=== PATIENT | female | born 1955 | race Caucasian/White ===

== ENCOUNTER 2017-09-20 07:50 | Day surgery (SDC) | payer OTHER, BC ==
[~2017-09-20] VITALS: Ht 162.6 cm; Wt 74.8 kg
[~2017-09-20 07:50] MED LIST: LEVOTHYROXINE25 MCG PO; TRAZODONE HCL50 MG PO
--- NOTE | 2017-09-20 08:54 | NUR ---
0854 PATIENT TO IMAGING FOR NEEDLE LOCALIZATION. 0978 PATIENT BACK TO DAY SURGERY. IV FLUSHED AND INFUSING WELL.
--- NOTE | 2017-09-20 11:04 | NUR ---
09/20/17 1104 [employer] 1100 PATIENT ARRIVES TO PACU, RESTING WITH EYES CLOSED. RESPONDS APPROPRIATELY TO QUESTIONS. RESP EVEN AND UNLABORED, MASK AT 10 LITERS ON ARRIVAL, TURNED DOWN TO 6LITERS, SATS 100%. RATES PAIN A DISCOMFORT 5/10, DENIES PAIN MEDS AT THIS TIME.
[2017-09-20] MEDS ORDERED: OXYCODON-ACETA1 EAC2 PO (11:12)
[2017-09-20] MEDS ORDERED: MAPAP325 MG PO (11:12)
[2017-09-20] MEDS ORDERED: IBUPROFEN600 MG PO (11:12)
--- NOTE | 2017-09-20 11:30 | NUR ---
PATIENT TOLERATING WATER AND CRACKERS, NO NAUSEA. PATIENT REPORTS RIGHT BREAST PAIN 5/10. P.O. PERCOCET GIVEN.
--- NOTE | 2017-09-20 12:21 | NUR ---
1215-PATIENT UP TO BATHROOM SBA VOIDED 200MLS CLEAR YELLOW URINE. REPORTS PAIN 3/10 SINCE RECEIVING MEDICATION. DENIES NAUSEA. SALINE LOCKED IV. VSS
--- NOTE | 2017-09-20 16:07 | EKG ---
[facility] [address] [facility] [place] [address] Signed Normal sinus rhythm Normal ECG No previous ECGs available Confirmed by TESS DORSEY MD ([id number]) on 09/20/2017 4:07:39 PM Electronically Signed By: TESS DORSEY MD 09/20/17 1607 PATIENT NAME: ELOISA PADILLA Electrocardiogram DATE OF : 53 PHYSICIAN: TESS DORSEY MD REPORT #: [id number] REPORT IS CONFIDENTIAL AND NOT TO BE RELEASED WITHOUT AUTHORIZATION
--- NOTE | 2017-09-22 09:30 | OR ---
[facility] [address] [place], [place] [address] Signed DATE OF OPERATION: 09/20/2017 SURGEON: Kyara De La Cruz MD PREOPERATIVE DIAGNOSIS: Right lateral breast atypical lobular hyperplasia on core biopsy. POSTOPERATIVE DIAGNOSIS: Right lateral breast atypical lobular hyperplasia on core biopsy. PROCEDURE: Needle localized partial excision of breast. ANESTHESIA: General LMA; Kyara Ragland CRNA and local 10 mL of 1% lidocaine. INDICATION: This 62-year-old white woman is a patient of SUKUMAR Bonilla. She also sees Dr. Lizet Kern. She was noted to have an abnormality on mammogram in the right upper outer aspect of the breast, underwent image-guided biopsy by Dr. Luba Villalobos showing fibrosis and fibroadenomatoid change with a 2 mm focus of atypical lobular hyperplasia. There was no sign of invasive carcinoma. Given the findings of atypical lobular hyperplasia, wider excision is deemed appropriate on the possibility of local invasive cancer in the area. As the lesion is not palpable, a needle localized excisional approach is necessary. The risks of bleeding, infection, cosmetic deformity, need for additional treatment, should malignancy be found were all reviewed in detail. She understands and wished to proceed. FINDINGS: The wire emanating from the lateral aspect of the right breast. Excised specimen contained the marker as well as the other findings of concern. Wide resection was undertaken. A 5 cm (golf ball size) excision was accomplished. There was no untoward bleeding and wound was closed without problem. DESCRIPTION OF PROCEDURE: The patient received from the Radiology suite with wire emanating from the lateral aspect of the right breast. She was given a general anesthetic with LMA technique. Preoperative antibiotic Ancef was given. The right breast was prepared with a chlorhexidine solution and draped sterilely. The table was placed in reverse Trendelenburg left side down position. The area from which the needle emanated did not Electronically Signed By: KYARA DE LA CRUZ MD 09/22/17 0930 PATIENT NAME: ELOISA PADILLA OPERATIVE REPORT DATE OF : 53 REPORT #: [id number] PHYSICIAN: KYARA DE LA CRUZ MD PCP: ELOISA CONNELLY REPORT IS CONFIDENTIAL AND NOT TO BE RELEASED WITHOUT AUTHORIZATION [facility] [address] [place], [place] [address] Signed lend itself well to an inframammary incision or a circumareolar incision and on that basis, an incision was made medial to the wire entry point along the line of skin tension. Dissection was carried through the skin with a #15 blade. The wire was delivered into the wound and the parenchyma grasped with an Allis clamp. Using electrocautery, wide resection was undertaken. The angle had some angulation deformity and curvature to it, concordant to the preoperative imaging study and therefore, a wide resection was undertaken. Electrocautery was used for hemostasis. The wound was irrigated with saline solution. The specimen was passed for specimen radiograph and ultimately confirmed to have the marker within the specimen and other findings within it as well. The parenchyma of the breast was reapproximated with interrupted 2-0 Vicryl and skin closed with running subcuticular 3-0 Vicryl. Steri-Strips were applied as was Mepilex silver sponge dressing and an OpSite. The patient tolerated the procedure well. Blood loss was 10 mL or so. Kyara De La Cruz MD JM/MODL /[id number] cc: MD Eloisa Jones PA Copies: LUBA VILLALOBOS MD, LINDA PA ~ Electronically Signed By: KYARA DE LA CRUZ MD 09/22/17 0930 PATIENT NAME: ELOISA PADILLA OPERATIVE REPORT DATE OF : 53 REPORT #: [id number] PHYSICIAN: KYARA DE LA CRUZ MD PCP: ELOISA CONNELLY REPORT IS CONFIDENTIAL AND NOT TO BE RELEASED WITHOUT AUTHORIZATION
== END 2017-09-20 13:15 | disposition home or self-care (01) ==
LOC: DS 07:50 → US 09:00 → DS 09:00 → EDSTATUS 09:00 → DS 13:15
PROVIDERS: Surgery
PROC: 0HBT0ZZ Excision of Right Breast, Open Approach (ICD-10-PCS; principal; 2017-09-20 10:00)
DX: N60.11 Diffuse cystic mastopathy of right breast (principal); G89.29 Other chronic pain; M54.9 Dorsalgia, unspecified; Z98.890 Other specified postprocedural states; Z79.899 Other long term (current) drug therapy
CPT/HCPCS: 00404; 76098; 76942; 77065; 93005; 93010; J0690; J1100; J1644; J1885; J2250; J2405; J2704; J2765; J3010; J7120

== ENCOUNTER 2018-06-10 17:03 | Emergency (ER) | payer OTHER, BC ==
[~2018-06-10] VITALS: Ht 162.6 cm; Wt 72.6 kg
[~2018-06-10 17:03] MED LIST changes: +IBUPROFEN600 MG PO; +MAPAP325 MG PO; +OXYCODON-ACETA1 EAC2 PO
--- NOTE | 2018-06-11 16:50 | EKG ---
[facility] [address] [facility] [place] [address] Signed Sinus rhythm with occasional premature ventricular complexes Otherwise normal ECG When compared with ECG of 20-SEP-2017 08:42, premature ventricular complexes are now present Nonspecific T wave abnormality now evident in Anterior leads Confirmed by SHANAE DANIELSON DO ([id number]) on 06/11/2018 4:50:45 PM Electronically Signed By: SHANAE DANIELSON DO 06/11/18 1650 PATIENT NAME: ELOISA PADILLA Electrocardiogram DATE OF : 53 PHYSICIAN: SHANAE DANIELSON DO REPORT #: [id number] REPORT IS CONFIDENTIAL AND NOT TO BE RELEASED WITHOUT AUTHORIZATION
== END 2018-06-10 19:00 | disposition home or self-care (01) ==
LOC: ED 17:03
DX: R07.89 Other chest pain (principal); Z79.899 Other long term (current) drug therapy
CPT/HCPCS: 71046; 80053; 84484; 85025; 93005; 93010; 99285-25